=== PATIENT | female | born 1995 | race Caucasian/White ===

== ENCOUNTER 2019-09-05 21:03 | Observation (INO) | payer MEDICAID, OTHER ==
[~2019-09-05 21:03] MED LIST: Iopamidol-370 76% 500 ML 1 ML ONE
[2019-09-05 21:37] LABS: Bilirubin Negative (Negative); Blood, Urine Negative (Negative); Clarity Turbid (Clear); Glucose, Urine (Dipstick) Normal (Negative); Ketone, Urine Negative (Negative); Leukocyte 250 Leu/uL (Negative); Nitrite Negative (Negative); Protein, Urine (Dipstick) 30 mg/dL (Neg-Trace); Specific Gravity, Urine 1.024 (1.002-1.036); Squamous Epithelial 21-50 HPF (0-3); Urobilinogen Normal mg/dL (Less than 2)
[2019-09-05 21:38] LABS: Bacteria/HPF 1+ HPF (None Seen)
[2019-09-05 21:40] LABS: Pregnancy Test - Urine (BHCG) Negative (Negative); Pregu Control Background? CLEAR/WHITE (CLR/WHITE); Pregu Control Bar Appear? YES (CONTROL BAR); Specific Gravity 1.024 (1.002-1.036)
[2019-09-05 21:49] LABS: #Eosinphils 0.2 thou/uL (0.0-0.7); #Lymphocytes 2.8 thou/uL (1.20-3.40); #Monocytes 0.7 thou/uL (0.11-0.59); #Neutrophils 7.2 thou/uL (1.40-6.50); %Basophils 0.4 % (0.0-1.0); %Eosinophils 1.8 % (0.0-10.0); %Lymphocytes 25.8 % (21.0-51.0); %Monocytes 6.3 % (0.0-10.0); %Neutrophils 65.6 % (42.0-75.0); Hemoglobin 14.3 g/dL (12.0-16.0); Mean Corpuscular HGB CONC 34.3 g/dL (32.0-36.0); Mean Corpuscular Hemoglobin 28.6 pg (27.0-31.0); Mean Corpuscular Volume 83.5 fL (78.0-98.0); Mean Platelet Volume 8.8 fL (7.4-10.4); Platelet Count 243 thou/uL (130-400); RBC Distribution Width 12.5 % (11.5-14.5); Red Blood Cell (RBC) Count 4.98 mill/uL (4.20-5.40)
[2019-09-05 22:06] LABS: ALT (SGPT) 41 U/L (8-55); AST (SGOT) 20 U/L (5-34); Albumin 4.2 g/dL (3.5-5.0); Alkaline Phosphatase 83 U/L (40-110); Anion Gap 13 mmol/L (10-20); BUN (Urea Nitrogen) 6 mg/dL (7.0-18.7); Bilirubin, Total 1.4 mg/dL (0.2-1.2); Calc. Creatinine Clearance 0 mL/min (70-130); Calcium 9.7 mg/dL (7.8-10.44); Carbon Dioxide 23 mmol/L (22-29); Chloride 107 mmol/L (98-107); Estimated GFR-MDRD 87; Globulin 3.2 g/dL (2.4-3.5); Glucose 76 mg/dL (70-105); Potassium 3.8 mmol/L (3.5-5.1); Protein, Total 7.4 g/dL (6.0-8.3); Sodium 139 mmol/L (136-145)
[2019-09-06] MEDS ORDERED: Piperacillin/Tazobactam 4.5 GM VIAL ONE (00:59)
[2019-09-06 02:30] VITALS: BMI 45.4
[2019-09-06] MEDS ORDERED: Lactated Ringer's 1,000 ML IV SCH ×2 (02:31→08:15)
[2019-09-06] MEDS ORDERED: Ondansetron PF 4 MG/2 ML Vial IVP PRN ×3 (02:31→08:03)
[2019-09-06] MEDS ORDERED: Morphine 4 MG/ML VIAL SLOW IVP PRN ×2 (02:32→08:00)
[2019-09-06] MEDS ORDERED: Piperacillin/Tazobactam 4.5 GM in Sodium Chloride 0.9% 100 ML IVPB SCH (06:00)
[2019-09-06] MEDS ORDERED: Morphine 2 MG/ML VIAL SLOW IVP PRN (08:00)
[2019-09-06] MEDS ORDERED: Ondansetron ODT 4 MG TAB PO PRN (08:00)
[2019-09-06] MEDS ORDERED: hydrALAZINE 20 MG/ML VIAL SLOW IVP PRN (08:00)
[2019-09-06] MEDS ORDERED: Ondansetron ODT 8 MG TAB SL PRN (08:03)
[2019-09-06] MEDS ORDERED: Ondansetron ODT 8 MG TAB PO PRN (08:03)
--- NOTE | 2019-09-06 08:04 | CT ---
PRELIMINARY REPORT/[facility]/EMERGENCY AFTER HOURS PROCEDURE: This report was discussed with Jose Miramontes MD by Rachael Melvin on Sep 06, 2019 00:31:00 CDT. Addendum electronically signed by Rachael Melvin on September 06, 2019 12:32:42 AM CDT EXAM: CT Abdomen and Pelvis with Intravenous Contrast CLINICAL HISTORY: Pt is a 24 yo F with no significant pmh who presents for abdominal pain. She states the pain was init ially epigastric, but has moved down to the right lower quadrant and radiates over to her belly butto n. She states the pain is sharp and stabbing, constant, worse with movement, better with rest. Jose tly a 4/10 pain. She has nausea and she had vomiting last night. She says she has not had a BM since the pain started, which is unusual for her. She has never experienced pain like this before. TECHNIQUE: Axial computed tomography images of the abdomen and pelvis with intravenous contrast. CONTRAST: With; ISOVUE 370,100mL COMPARISON: None provided. FINDINGS: LUNG BASES: No basilar airspace consolidation or pleural effusion. LIVER: The liver is enlarged measuring 21.1 cm in length and is hypoenhancing. GALLBLADDER AND BILE DUCTS: Unremarkable. No calcified stone. No ductal dilation. PANCREAS: Unremarkable. SPLEEN: The spleen is enlarged measuring 14.9 cm in length. ADRENAL GLANDS: Unremarkable. KIDNEYS, URETERS, AND BLADDER: Unremarkable. No hydronephrosis or nephrolithiasis. No ureteral or bladder calculi. STOMACH AND BOWEL: No obstruction. No wall thickening. No CT evidence of colitis or acute diverticulitis. APPENDIX: The appendix measures 8 mm in diameter with mild adjacent fat stranding. PERITONEUM: No free fluid. No free air. LYMPH NODES: No lymphadenopathy. REPRODUCTIVE: Unremarkable as visualized. VASCULATURE: No aortic aneurysm. BONES: No fracture or suspicious osseous abnormality. ABDOMINAL WALL AND SOFT TISSUES: Unremarkable. IMPRESSION: Mildly enlarged appendix with mild adjacent fat stranding. This may represent early or mild acute ap pendicitis. Clinical correlation is recommended. Hepatosplenomegaly with fat infiltration of the liver. ELECTRONICALLY SIGNED BY: Julian Blunt MD Sep 06, 2019 12:24:54 AM CDT This report is intended for review by the ordering physician only, in accordance of law. If you recei ve this report in error, please call [facility] at [phone]. FINAL REPORT CT ABDOMEN AND PELVIS WITH IV CONTRAST: I agree with the preliminary report given by [facility]. POS: OFF
[2019-09-06] MEDS ORDERED: Ondansetron PF 4 MG/2 ML Vial IVP SCH (08:15)
[2019-09-06] MEDS ORDERED: Dexamethasone 20 MG/5 ML VIAL ONE (09:25)
[2019-09-06] MEDS ORDERED: Ondansetron PF 4 MG/2 ML Vial ONE (09:25)
[2019-09-06] MEDS ORDERED: Lidocaine 1% PF 5 ML VIAL ONE (09:25)
[2019-09-06] MEDS ORDERED: Rocuronium Bromide 10 MG/ML (10ML VIAL) ONE (09:25)
[2019-09-06] MEDS ORDERED: PROPOFOL 200 MG/20 ML VIAL ONE (09:25)
[2019-09-06] MEDS ORDERED: Succinylcholine Chloride 20 MG/ML 10 ml SYRINGE FS ONE (09:25)
[2019-09-06] MEDS ORDERED: Metoclopramide HCl 10 MG/2 ML VIAL ONE (09:25)
[2019-09-06] MEDS ORDERED: Glycopyrrolate 0.2 MG/ML 5 ML SYRINGE ONE (09:25)
--- NOTE | 2019-09-06 09:51 | HP ---
HISTORY OF PRESENT ILLNESS: Noreen Donaldson is a 24-year-old obese female, 45 BMI, 5 foot and 10, 317 pounds, lives in [place], has children, is , began having pain two days ago, epigastric, localizing to right lower quadrant, suffered anorexia and increased pain with movement. She presented to the emergency room last night, noted to have a white count of 11. Her basic metabolic profile is normal. Glucose 76. She underwent a CAT scan demonstrating changes consistent with appendicitis. I have been asked to see, admitted her, placed her on IV antibiotics. COVID test ordered. Plan is for laparoscopic video appendectomy today. Risks of infection, bleeding, visceral injury, open procedure discussed. Questions answered. CAT scan negative except for changes consistent with appendicitis. ALLERGIES: SHELLFISH, BUT SHE TOOK IV IODINE WITH CAT SCAN WITHOUT PROBLEMS. SOCIAL HISTORY: Tobacco, none. Alcohol, none. MEDICATIONS: None. PAST SURGICAL HISTORY: Tonsillectomy and . PAST MEDICAL HISTORY: Noncontributory. REVIEW OF SYSTEMS: Noncontributory. FAMILY HISTORY: Noncontributory. PHYSICAL EXAMINATION: VITAL SIGNS: Height 5 foot and 10 inches, 317 pounds, 45 BMI, temperature 97.7, heart rate 72, blood pressure 120/67. LUNGS: Clear to auscultation. CARDIAC: Regular rate and rhythm. No murmur or gallop. ABDOMEN: Soft, obese, tenderness in right lower quadrant without guarding or rebound. EXTREMITIES: Unremarkable. ASSESSMENT AND PLAN: Acute appendicitis. Recommend laparoscopic video appendectomy. Risks and benefits discussed. Job ID: [id number]
[2019-09-06] MEDS: Famotidine 20 MG TAB PO SCH ×2 (10:01→21:46)
[2019-09-06] MEDS: Piperacillin/Tazobactam 4.5 GM in Sodium Chloride 0.9% 100 ML IVPB SCH ×2 (11:50→19:40)
[2019-09-06 15:00] LABS: SARS-CoV-2 MS2 Positive; SARS-CoV-2 N Gene Negative; SARS-CoV-2 S Gene Negative; SARS-CoV-2 by NAA Not Detected (NotDetected); SARS-CoV-2 orf1ab Negative
[2019-09-06] MEDS ORDERED: Fentanyl 250 MCG/5 ML VIAL ONE (16:39)
[2019-09-06] MEDS ORDERED: Midazolam HCl 2 mg/2 ml Vial ONE (16:39)
[2019-09-06] MEDS ORDERED: Bupivacaine PF 0.5% 30 ML VIAL ONE (16:51)
[2019-09-06] MEDS ORDERED: Lidocaine 1% w/Epinephrine 1:100K 20 ML VIAL ONE (16:51)
[2019-09-06] MEDS ORDERED: Acetaminophen 500 MG TAB PO PRN (18:15)
[2019-09-06] MEDS ORDERED: traMADol HCl 50 MG TAB PO PRN ×2 (18:15)
[2019-09-06] MEDS ORDERED: Ibuprofen 600 MG TAB PO PRN (18:15)
[2019-09-06] MEDS ORDERED: Promethazine HCl 25 MG/ML VIAL IM PRN (18:16)
[2019-09-06] MEDS ORDERED: Promethazine HCl 25 MG/ML VIAL SLOW IVP PRN (18:16)
[2019-09-06] MEDS ORDERED: Ondansetron HCl/PF 4 MG/2 ML Vial IVP PRN (18:16)
[2019-09-06] MEDS ORDERED: Fentanyl 100 MCG/2 ML VIAL ONE ×2 (18:30→18:51)
[2019-09-06] MEDS ORDERED: Enoxaparin Sodium 40 MG/0.4 ML SYRINGE SC SCH (21:00)
[2019-09-06 22:33] VITALS: BP 119/69; TEMP 98
--- NOTE | 2019-09-07 03:32 | DIS ---
DATE OF ADMISSION: 09/06/2019 DATE OF DISCHARGE: 09/06/2019 DISCHARGE DIAGNOSES: Acute appendicitis and morbid obesity. POSTOPERATIVE DIAGNOSES: Acute appendicitis and morbid obesity. PROCEDURE PERFORMED: Laparoscopic video appendectomy. HISTORY: Morbidly obese, 24-year-old female from [place], presents with a 2-day history of epigastric pain localizing right lower quadrant. CAT scan confirmed appendicitis. Given intravenous antibiotics overnight, taken to operating room for laparoscopic video appendectomy. Discharged home with Tylenol, Advil, and Ultram p.r.n. pain. Follow up in my office in 2 to 3 weeks. Diet and activity as tolerated. Job ID: [id number]
--- NOTE | 2019-09-07 10:14 | OP ---
DATE OF PROCEDURE: 09/06/2019 PREOPERATIVE DIAGNOSES: Severe morbid obesity and acute appendicitis. POSTOPERATIVE DIAGNOSES: Severe morbid obesity and acute appendicitis. PROCEDURE PERFORMED: Laparoscopic video appendectomy. ANESTHESIA: General, local with 0.5% Marcaine 30 mL, mixed with 1% Xylocaine with epinephrine 20 mL. DESCRIPTION OF PROCEDURE: The patient was taken to the operating room, where under general anesthesia Mai catheter was placed at the beginning of the procedure and removed at the end. Abdomen was prepared with ChloraPrep and draped in routine fashion. Local anesthetic infiltrated in the skin and subcutaneous tissue at each port site. Infraumbilical incision was made. Pneumoperitoneum to 15 mmHg was obtained with a Veress needle, replaced with a 5 port. Right lateral subcostal incision was made and a 5 port placed. Suprapubic incision was made and a 12 port placed. Appendix acutely inflamed and mesoappendix was taken down with the LigaSure. Stump of the appendix was divided with Endo-FROY blue load stapler. Stapled cecal stump was hemostatic and secured. Appendix was removed in endobag. Suprapubic fascia was approximated with 0 Vicryl and GraNee needle. Good hemostasis assured. Irrigant and pneumoperitoneum were evacuated. All instruments were removed. All skin incisions were approximated with subdermal 4-0 Monocryl and [place] glue applied. Job ID: [id number]
--- NOTE | 2019-09-12 06:26 | PQF ---
CLINICAL DOCUMENTATION CLARIFICATION FORM: Dear : Giovany Collazo Date / Time:09/12/19623 Please exercise your independent, professional judgment in responding to the clarification form. Clinical indicators are provided on the bottom of this form for your review Final Diagnosis on the Pathology report: Serositis Please check appropriate box(es): [ yes] Agree w the pathology finding of: Serositis [ ] Other explanation of pathology findings (please specify) [ ] Other diagnosis [ ] Unable to determine Physician Signature: Date/Time: For continuity of documentation, please document condition throughout progress notes and discharge summary. Thank You. To be completed by [facility]Coding staff for physician review: Present Clinical Indicators - Signs / Symptoms / Labs Results and Location in Medical Record [x] WBC 11.0, Neutrophils 7.2, Plt count 243 Laboratory Hematology 09/04 [x] BP 116/58; 113/57, Pulse 80, Resp 20, Temp 98.2 Vital signs 09/05 [x] Having epigastric, RLQ, suffered anorexia H&P p1 09/05 Dr Collazo [x] Acute appendicitis and serositis Path report 09/05 Dr Cordova Present Risk Factors Results and Location in Medical Record [x] Acute Appendicitis H&P p1 09/05 Dr Collazo [x] Morbid Obesity DS 09/05 Present Treatments Results and Location in Medical Record [x] IV Zosyn 4.5 APR 20 [x] IVF NS 1L APR 20 [x] IV Lactated Ringers 1L APR 20 [x] Appendectomy Operative report 09/05 Dr Collazo [x] CT Abdomen Imaging Dr Cunningham 09/05 [facility] [facility] Supervisor Signature: Amanda Dowd Phone #: ext [phone] Date/Time: 09/12/19623 This is a permanent part of the Medical Record [facility]
== END 2019-09-06 22:20 | disposition home or self-care (01) ==
LOC: ERS 21:03 → 3SE 09-06 01:03 → INTOOBSV 09-06 01:03
PROVIDERS: ADMIT Specialist; ATTEND Specialist
PROC: 0DTJ4ZZ Resection of Appendix, Percutaneous Endoscopic Approach (ICD-10-PCS; principal; 2019-09-06)
DX: K35.33 Acute appendicitis with perforation, localized peritonitis, and gangrene, with abscess (principal); F32.9 Major depressive disorder, single episode, unspecified; E66.01 Morbid (severe) obesity due to excess calories; Z68.42 Body mass index [BMI] 45.0-49.9, adult; Z79.899 Other long term (current) drug therapy; Z87.891 Personal history of nicotine dependence; Z91.013 Allergy to seafood; Z91.041 Radiographic dye allergy status; Z91.048 Other nonmedicinal substance allergy status; Z11.59 Encounter for screening for other viral diseases
CPT/HCPCS: 74177; 80053; 81003; 81015; 81025; 85025; 87635; 88304; 96365; 96376; G0378; J1100; J2250; J2405; J2543; J2704; J2765; J3010; J3490; Q9967; S0020; U0003